=== PATIENT | female | born 1945 | race Caucasian/White ===

== ENCOUNTER 2016-12-06 18:00 | Emergency (ER) | payer MEDICARE, BC ==
[2016-12-06] MEDS ORDERED: Sodium Chloride 0.9% 1,000 ML IV SCH (19:00)
[2016-12-06] MEDS ORDERED: Aspirin 81 MG Tab.Chew PO ONE (19:13)
[2016-12-06] MEDS ORDERED: Nitrofurantoin Monohydrate/Macrocrystalline 100 MG Cap PO ONE (21:01)
[2016-12-06 21:11] VITALS: BP 110/78
--- NOTE | 2016-12-06 23:02 | EDM.PDOC ---
ED HPI GENERAL MEDICAL PROBLEM - General Chief Complaint: Neuro Symptoms/Deficits Stated Complaint: ELEVATED BLOOD SUGAR Time Seen by Provider: 12/06/16 18:27 Source of Information: Reports: Patient, Family History Limitations: Reports: No Limitations - History of Present Illness INITIAL COMMENTS - FREE TEXT/NARRATIVE: History of present illness: [71-year-old female presenting with left facial droop over the last 2-3 days. She's also developed increased weakness and unstable gait. She is here with her son and daughter. She is diabetic and continues to smoke heavily. She is a prior CVA.] Review of systems: As per history of present illness and below otherwise all systems reviewed and negative. Past medical history: As per history of present illness and as reviewed below otherwise noncontributory. Surgical history: As per history of present illness and as reviewed below otherwise noncontributory. Social history: No reported history of drug or alcohol abuse. Family history: As per history of present illness and as reviewed below otherwise noncontributory. Physical exam: HEENT: Atraumatic, normocephalic, pupils reactive, negative for conjunctival pallor or scleral icterus, mucous membranes moist, throat clear, neck supple, nontender, trachea midline. Lungs: Clear to auscultation, breath sounds equal bilaterally, chest nontender. Heart: S1S2, regular, negative for clicks, rubs, or JVD. Abdomen: Soft, nondistended, nontender. Negative for masses or hepatosplenomegaly. Negative for costovertebral tenderness. Pelvis: Stable nontender. Genitourinary: Deferred. Rectal: Deferred. Extremities: Atraumatic, negative for cords or calf pain. Neurovascular unremarkable. Neuro: Awake, alert, oriented. She has a notable facial droop on the left side of her face with the crease of the left corner of her mouth flattening out as compared to the right. Babinski is mute. Moving all extremities. No pronator drift. Diagnostics: [Head CT does not reveal anything acute but does reveal old strokes. See the report for details. CBC complete metabolic panel UA EKG were done. We were also able to obtain carotid ultrasound in the tech reports to me that there is significant narrowing but were still waiting for the final report. Patient is in sinus rhythm] Therapeutics: [Patient received IV fluids and aspirin] Impression: [Acute CVA.] Plan: [Patient is leaving AMA. She is a heavy smoker and I think she wants to Ghazal that she can smoke. I spoke to her and her family extensively about her smoking and the fact that it is significantly contributing to the shortening of her life and putting her at high risk for stroke or heart attack. I was hoping she would stay until I get the results of the carotid ultrasound and Dr. metcalf and I was considering transferring her to forego definitive management. She is again adamant about leaving against my advice. She is to follow-up with her primary care provider who can obtain the results of the ultrasound and make arrangements for her to be seen by neurosurgery if that is indicated. She is to take a baby aspirin every day.] Definitive disposition and diagnosis as appropriate pending reevaluation and review of above. - Related Data Allergies Allergy/AdvReac Type Severity Reaction Status Date / Time No Known Allergies Allergy Verified 12/03/15 13:16 Home Meds: Home Meds Aspirin 81 mg PO DAILY 12/06/15 [History] Gabapentin [Neurontin] 600 mg PO BID 12/06/15 [History] Multivitamin with Minerals [Multiple Vitamin] 1 tab PO DAILY 12/06/15 [History] amLODIPine [Norvasc] 10 mg PO DAILY #90 tablet 12/15/15 [Rx] DULoxetine [Cymbalta] 30 mg PO BID 12/06/16 [History] Insulin Detemir [Levemir] 54 unit SUBCUT ACBREAKFAST 12/06/16 [History] Lisinopril 20 mg PO DAILY 12/06/16 [History] Pravastatin [Pravachol] 10 mg PO DAILY 12/06/16 [History] buPROPion [Wellbutrin] 100 mg PO BID 12/06/16 [History] Past Medical History HEENT History: Reports: Impaired Vision Cardiovascular History: Reports: Hypertension Respiratory History: Reports: SOB Other Respiratory History: Extensive Smoking History with smoking atleast 2.5 packs per day currently [employer] History: Reports: Musculoskeletal History: Reports: Back Pain, Chronic Neurological History: Reports: TIA Psychiatric History: Reports: Depression Endocrine/Metabolic History: Reports: Diabetes, Type II - Infectious Disease History Infectious Disease History: Reports: Chicken Pox - Past Surgical History GI Surgical History: Reports: Cholecystectomy Social & Family History - Family History Endocrine/Metabolic: Reports: Diabetes, type II Dermatologic: Reports: Eczema Oncologic: Reports: Other (See Below) Other Oncologic Family History: unsure if stomach or pancreas - Tobacco Use Smoking Status *Q: Current Every Day Smoker Years of Tobacco use: 50 Packs/Tins Daily: 1 Used Tobacco, but Quit: No Month Tobacco Last Used: November Second Hand Smoke Exposure: Yes - Caffeine Use Caffeine Use: Reports: None - Recreational Drug Use Recreational Drug Use: No - Living Situation & Occupation Living situation: Reports: ED ROS GENERAL - Review of Systems Review Of Systems: ROS reveals no pertinent complaints other than HPI. ED EXAM, NEURO - Physical Exam Exam: See Below Course - Vital Signs Last Recorded V/S: Last Vital Signs Temp 36.9 C 12/06/16 21:10 Pulse 89 12/06/16 21:10 Resp 16 12/06/16 21:10 BP 110/78 12/06/16 21:10 Pulse Ox 94 L 12/06/16 21:10 - Orders/Labs/Meds Orders: Active Orders 24 hr Category Date Time Status EKG Documentation Completion [RC] ASDIRECTED Care 12/06/16 21:00 Active Carotid Comp [US] Stat Exams 12/06/16 21:18 Taken Head wo Cont [CT] Stat Exams 12/06/16 18:44 Taken CULTURE URINE [RM] Stat Lab 12/06/16 21:13 Received Sodium Chloride 0.9% [Normal Saline] 1,000 ml Med 12/06/16 19:00 Active IV ASDIRECTED EKG 12 Lead [EK] Stat Ther 12/06/16 21:00 Ordered Medication Orders Sodium Chloride (Normal Saline) 1,000 mls @ 999 mls/hr IV ASDIRECTED TATYANA Last Admin: 12/06/16 19:16 Dose: 999 mls/hr Labs: Laboratory Tests 12/06/16 12/06/16 12/06/16 Range/Units 18:44 18:44 18:44 WBC 10.0 (4.5-11.0) K/uL RBC 5.24 (3.30-5.50) M/uL Hgb 14.3 (12.0-15.0) g/dL Hct 43.7 (36.0-48.0) % MCV 83 (80-98) fL MCH 27 (27-31) pg MCHC 33 (32-36) % Plt Count 307 (150-400) K/uL Neut % (Auto) 55 (36-66) % Lymph % (Auto) 32 (24-44) % [place]iffl[place] % (Auto) 10 H (2-6) % Eos % (Auto) 2 (2-4) % Baso % (Auto) 2 H (0-1) % ABG Hemoglobin (12.0-16.0) g/dL ABG Oxyhemoglobin % ABG Carboxyhemoglobin (0.0-1.6) % ABG Methemoglobin % VBG pH (7.350-7.450) VBG pCO2 mm/Hg VBG pO2 mm/Hg VBG HCO3 mmol/L VBG Total CO2 mmol/L VBG O2 Saturation VBG O2 Content %vol VBG Base Excess mm/L O2 Delivery Device Sodium 138 L (140-148) mmol/L Potassium 4.1 (3.6-5.2) mmol/L Chloride 101 (100-108) mmol/L Carbon Dioxide 26 (21-32) mmol/L Anion Gap 15.1 H (5.0-14.0) mmol/L BUN 20 H D (7-18) mg/dL Creatinine 1.2 H (0.6-1.0) mg/dL Est Cr Clr Drug Dosing 39.81 mL/min Estimated GFR (MDRD) 45 L (>60) Glucose 334 H (74-106) mg/dL Lactic Acid (0.4-2.0) mmol/L Calcium 9.5 (8.5-10.1) mg/dL Total Bilirubin 0.2 (0.2-1.0) mg/dL AST 12 L (15-37) U/L ALT 18 (12-78) U/L Alkaline Phosphatase 98 (46-116) U/L Total Protein 7.7 (6.4-8.2) g/dL Albumin 1.9 L (3.4-5.0) g/dL Globulin 5.8 H (2.3-3.5) g/dL Albumin/Globulin Ratio 0.3 L (1.2-2.2) TSH, Ultra Sensitive (0.358-3.740) uIU/mL Urine Color Yellow Urine Appearance Cloudy Urine pH 5.0 (4.5-8.0) Ur Specific Roulette 1.020 (1.008-1.030) Urine Protein 500 H (NEGATIVE) mg/dL Urine Glucose (UA) 1000 H (NEGATIVE) mg/dL Urine Ketones Negative (NEGATIVE) mg/dL Urine Occult Blood Moderate (NEGATIVE) Urine Nitrite Negative (NEGATIVE) Urine Bilirubin Negative (NEGATIVE) Urine Urobilinogen Normal (NORMAL) mg/dL Ur Leukocyte Esterase Large (NEGATIVE) Urine RBC 5-10 H (0-5) Urine WBC Semi-packed H (0-5) Ur Epithelial Cells Moderate Amorphous Sediment Few Urine Bacteria Many Urine Mucus Few 12/06/16 12/06/16 12/06/16 Range/Units 18:45 18:45 18:45 WBC (4.5-11.0) K/uL RBC (3.30-5.50) M/uL Hgb (12.0-15.0) g/dL Hct (36.0-48.0) % MCV (80-98) fL MCH (27-31) pg MCHC (32-36) % Plt Count (150-400) K/uL Neut % (Auto) (36-66) % Lymph % (Auto) (24-44) % Miffl[place] % (Auto) (2-6) % Eos % (Auto) (2-4) % Baso % (Auto) (0-1) % ABG Hemoglobin 14.3 (12.0-16.0) g/dL ABG Oxyhemoglobin 74.3 % ABG Carboxyhemoglobin 3.8 H (0.0-1.6) % ABG Methemoglobin 0.8 % VBG pH 7.457 H (7.350-7.450) VBG pCO2 37.6 mm/Hg VBG pO2 39.2 mm/Hg VBG HCO3 26.2 mmol/L VBG Total CO2 22.8 mmol/L VBG O2 Saturation 77.9 VBG O2 Content 14.9 %vol VBG Base Excess 2.8 mm/L O2 Delivery Device Room air Sodium (140-148) mmol/L Potassium (3.6-5.2) mmol/L Chloride (100-108) mmol/L Carbon Dioxide (21-32) mmol/L Anion Gap (5.0-14.0) mmol/L BUN (7-18) mg/dL Creatinine (0.6-1.0) mg/dL Est Cr Clr Drug Dosing mL/min Estimated GFR (MDRD) (>60) Glucose (74-106) mg/dL Lactic Acid 2.0 (0.4-2.0) mmol/L Calcium (8.5-10.1) mg/dL Total Bilirubin (0.2-1.0) mg/dL AST (15-37) U/L ALT (12-78) U/L Alkaline Phosphatase (46-116) U/L Total Protein (6.4-8.2) g/dL Albumin (3.4-5.0) g/dL Globulin (2.3-3.5) g/dL Albumin/Globulin Ratio (1.2-2.2) TSH, Ultra Sensitive 1.215 (0.358-3.740) uIU/mL Urine Color Urine Appearance Urine pH (4.5-8.0) Ur Specific Roulette (1.008-1.030) Urine Protein (NEGATIVE) mg/dL Urine Glucose (UA) (NEGATIVE) mg/dL Urine Ketones (NEGATIVE) mg/dL Urine Occult Blood (NEGATIVE) Urine Nitrite (NEGATIVE) Urine Bilirubin (NEGATIVE) Urine Urobilinogen (NORMAL) mg/dL Ur Leukocyte Esterase (NEGATIVE) Urine RBC (0-5) Urine WBC (0-5) Ur Epithelial Cells Amorphous Sediment Urine Bacteria Urine Mucus Meds: Medications Generic Name Dose Route Start Last Admin Trade Name Freq PRN Reason Stop Dose Admin Sodium Chloride 1,000 mls @ 999 mls/hr 12/06/16 19:00 12/06/16 19:16 Normal Saline IV 999 mls/hr ASDIRECTED TATYANA Administration Discontinued Medications Generic Name Dose Route Start Last Admin Trade Name Freq PRN Reason Stop Dose Admin Aspirin 81 mg 12/06/16 19:13 12/06/16 19:20 Aspirin PO 12/06/16 19:14 81 mg ONETIME ONE Administration Nitrofurantoin Macrocrystals 100 mg 12/06/16 21:01 12/06/16 21:08 Macrobid PO 12/06/16 21:02 100 mg ONETIME ONE Administration Departure - Departure Time of Disposition: 23:02 Disposition: Home, Self-Care 01 Condition: Fair Clinical Impression: CVA (cerebral vascular accident) Qualifiers: CVA mechanism: unspecified Qualified Code(s): I63.9 - Cerebral infarction, unspecified - Discharge Information Forms: ED Department Discharge Additional Instructions: Please follow-up with your doctor as soon as possible next week. He can request the ultrasound results and then help you decide whether or not you want to pursue surgical clearing of your carotid arteries. Once again I urge you to please consider quitting smoking. Remember to take one baby aspirin per day. - My Orders Last 24 Hours: My Active Orders 12/06/16 18:44 Head wo Cont [CT] Stat 12/06/16 19:00 Sodium Chloride 0.9% [Normal Saline] 1,000 ml IV ASDIRECTED 12/06/16 21:00 EKG Documentation Completion [RC] ASDIRECTED EKG 12 Lead [EK] Stat 12/06/16 21:13 CULTURE URINE [RM] Stat 12/06/16 21:18 Carotid Comp [US] Stat - Assessment/Plan Last 24 Hours: My Active Orders 12/06/16 18:44 Head wo Cont [CT] Stat 12/06/16 19:00 Sodium Chloride 0.9% [Normal Saline] 1,000 ml IV ASDIRECTED 12/06/16 21:00 EKG Documentation Completion [RC] ASDIRECTED EKG 12 Lead [EK] Stat 12/06/16 21:13 CULTURE URINE [RM] Stat 12/06/16 21:18 Carotid Comp [US] Stat
== END 2016-12-06 23:16 | disposition home or self-care (01) ==
LOC: JP.ED 18:00
DX: I63.9 Cerebral infarction, unspecified (principal); F17.210 Nicotine dependence, cigarettes, uncomplicated; I10 Essential (primary) hypertension; E11.9 Type 2 diabetes mellitus without complications; Z90.49 Acquired absence of other specified parts of digestive tract; Z79.899 Other long term (current) drug therapy; Z79.4 Long term (current) use of insulin; Z79.82 Long term (current) use of aspirin
CPT/HCPCS: 36415; 70450; 80053; 81001; 82803; 83605; 84443; 85025; 87086; 93005; 93880; 96360; 96361; 99284; A9270; J7040; 87088; 87186; 93010